=== PATIENT | female | born 1995 | race Two or more races ===

== ENCOUNTER 2020-12-07 22:01 | Observation (INO) | payer SELFPAY ==
[~2020-12-07] VITALS: Ht 154.9 cm; Wt 88.0 kg
== END 2020-12-08 00:47 | disposition home or self-care (01) ==
LOC: LDRP 22:01
PROVIDERS: ADMIT Obstetrics & Gynecology; ATTEND Obstetrics & Gynecology
DX: O42.92 Full-term premature rupture of membranes, unspecified as to length of time between rupture and onset of labor (principal); Z3A.38 38 weeks gestation of pregnancy
CPT/HCPCS: 59025; 81002; 84112; G0378; Q0114

== ENCOUNTER 2020-12-10 09:08 | Inpatient (IN) | payer BC, MEDICAID, OTHER ==
[2020-12-10] VITALS (13 sets, daily range): BP systolic 108–138; BP diastolic 64–80
[~2020-12-10] VITALS: Ht 154.9 cm; Wt 90.7 kg
[2020-12-10] MEDS ORDERED: TETRACAINE 1% INJ 2 ML VIAL IJ ONE (11:00)
[2020-12-10] MEDS ORDERED: MORPHINE SULF(PF) 0.5MG/ML 10ML VIAL ONE (11:01)
[2020-12-10] MEDS ORDERED: EPINEPHrine HCL 1 MG/1 ML AMP ONE (11:01)
[2020-12-10] MEDS ORDERED: ONDANSETRON HCL 4 MG/2 ML VIAL ONE (11:01)
[2020-12-10] MEDS ORDERED: MIDAZOLAM HCL 1MG/1ML-2 ML VIAL ONE (11:01)
[2020-12-10] MEDS ORDERED: oxyTOCIN 10 UNIT/ML 10ML VIAL ONE (11:01)
[2020-12-10] MEDS ORDERED: fentaNYL CITRATE 100 MCG/2 ML VL ONE (11:01)
[2020-12-10] MEDS ORDERED: SODIUM CHLORIDE LOCK 10 ML ONE (11:01)
[2020-12-10] MEDS ORDERED: BUPIVACAINE/DEXTROSE MPF 0.75% 2 ML AMP IT ONE (11:01)
[2020-12-10 11:36] LABS: Basophils # (auto) 0.1 10 ^3/uL (0-0.2); Eosinophils # (auto) 0 10 ^3/uL (0-0.8); Eosinophils % (auto) 0.2 % (0.0-7.0); Lymphocytes % (auto) 18.6 % (10.0-50.0); Mean Corpuscular Hemoglobin 29.4 pg (28.0-32.0); Mean Corpuscular Hgb Conc. 33.4 g/dL (32.0-36.0); Mean Corpuscular Volume 88.2 fL (80.0-100.0); Monocytes # (auto) 0.6 10 ^3/uL (0-1.3); Monocytes % (auto) 5.3 % (0.0-12.0); Neutrophils # (auto) 8.1 10 ^3/uL (1.6-8.6); Neutrophils % (auto) 74.9 % (37.0-80.0); Nucleated Red Blood Cells % 0.2 %; Platelet Count (auto) 272 10^3/uL (140-450); Red Blood Cells 4.08 10^6/uL (4.0-5.20); White Blood Cell 10.8 10^3/uL (4.4-10.8)
[2020-12-10] MEDS ORDERED: ceFAZolin 1GM/50ML 50 ML IV ONE ×2 (11:36→11:45)
[2020-12-10 11:40] LABS: Urine Bacteria NONE SEEN /hpf (None Seen); Urine Blood Negative /uL (Negative); Urine Specific Gravity 1.004 (1.001-1.035); Urine WBC <1 /hpf (0 - 5)
[2020-12-10 11:49] LABS: INR 0.98 (0.9-1.15); Partial Thromboplastin Time 26.9 sec (23.0-31.2)
[2020-12-10 12:03] LABS: Albumin 3.3 g/dL (3.4-5.0); Calcium 9.6 mg/dL (8.5-10.1); Potassium 3.7 mmol/L (3.5-5.1)
[2020-12-10 12:06] LABS: BUN/Creatinine Ratio 9.8; Bilirubin, Total 0.2 mg/dL (0.2-1.0); Total Protein 7.4 g/dL (6.4-8.2)
[2020-12-10 12:08] LABS: Alcohol, Urine < 3.0 mg/dL (0-10); Amphetamine Screen, Urine NEGATIVE (NEGATIVE); Barbiturate Scree,Urine NEGATIVE (NEGATIVE); Benzodiazephine Screen, Urine NEGATIVE (NEGATIVE); Cannabinoid Screen, Urine NEGATIVE (NEGATIVE); Cocaine Screen, Urine NEGATIVE (NEGATIVE); Opiate Scree,Urine NEGATIVE (NEGATIVE); Phencyclidine Screen, Urine NEGATIVE (NEGATIVE)
[2020-12-10] MEDS ORDERED: NEOSTIGMINE 1 MG/ML INJ (10mg/10ML VIAL) ONE (12:11)
[2020-12-10] MEDS ORDERED: GLYCOPYRROLATE 0.2 MG/ML 1ML VIAL ONE (12:11)
[2020-12-10] MEDS ORDERED: LACT. RINGERS/OXYTOCIN 20UNITS 1,000 ML IV ONE (12:15)
[2020-12-10] MEDS ORDERED: ONDANSETRON HCL 4 MG/2 ML VIAL IV PRN (12:15)
[2020-12-10] MEDS ORDERED: MEPERIDINE HCL (25 MG/ML) 1ML VIAL ONE (12:24)
[2020-12-10] MEDS ORDERED: HYDROmorphone HCL 2 MG/ML VL ONE (12:35)
[2020-12-10] MEDS ORDERED: ACETAMINOPHEN IV 100 ML IV ONE (12:35)
[2020-12-10] MEDS: HYDROmorphone HCL 2 MG/ML VL IV PRN ×2 (12:38→13:05)
[2020-12-10] MEDS ORDERED: MORPHINE SULFATE 4 MG/ML SYR/VIAL IV PRN (12:45)
[2020-12-10] MEDS ORDERED: METOCLOPRAMIDE HCL 5MG/ml INJ 2ml VIAL IV PRN (12:45)
[2020-12-10] MEDS ORDERED: KETOROLAC TROMETH 30 MG/ML 1ML VIAL IV ONE (12:45)
[2020-12-10] MEDS ORDERED: HYDROmorphone HCL 2 MG/ML VL IV PRN (12:45)
[2020-12-10] MEDS ORDERED: fentaNYL CITRATE 100 MCG/2 ML VL IV PRN (12:45)
[2020-12-10] MEDS: ceFAZolin 1GM/50ML 50 ML IV SCH ×2 (13:40→21:32)
[2020-12-10] MEDS: MORPHINE SULFATE 4 MG/ML SYR/VIAL IV PRN ×3 (14:22→21:32)
[2020-12-10] MEDS ORDERED: LACTATED RINGER'S 1,000 ML IV ONE (16:00)
[2020-12-10 21:19] LABS: Basophils # (auto) 0 10 ^3/uL (0-0.2); Basophils % (auto) 0.1 % (0.0-2.0); Eosinophils # (auto) 0 10 ^3/uL (0-0.8); Hematocrit 34.9 % (36.0-46.0); Hemoglobin 11.4 g/dL (12.2-16.2); Lymphocytes # (auto) 1.2 10 ^3/uL (0.4-5.4); Lymphocytes % (auto) 7.1 % (10.0-50.0); Mean Corpuscular Hemoglobin 28.9 pg (28.0-32.0); Mean Corpuscular Hgb Conc. 32.7 g/dL (32.0-36.0); Mean Corpuscular Volume 88.3 fL (80.0-100.0); Monocytes # (auto) 0.8 10 ^3/uL (0-1.3); Monocytes % (auto) 4.6 % (0.0-12.0); Neutrophils # (auto) 14.5 10 ^3/uL (1.6-8.6); Neutrophils % (auto) 88.2 % (37.0-80.0); Platelet Count (auto) 283 10^3/uL (140-450); Red Blood Cells 3.95 10^6/uL (4.0-5.20); Red Cell Distribution Width 14.9 % (11.8-14.3); White Blood Cell 16.5 10^3/uL (4.4-10.8)
[2020-12-11] MEDS: MORPHINE SULFATE 4 MG/ML SYR/VIAL IV PRN ×2 (01:33→05:18)
[2020-12-11 03:00] VITALS: BP 127/67
[2020-12-11] MEDS: ceFAZolin 1GM/50ML 50 ML IV SCH (05:18)
[2020-12-11 07:00] VITALS: BP 132/79
[2020-12-11 07:01] LABS: Basophils # (auto) 0 10 ^3/uL (0-0.2); Basophils % (auto) 0.1 % (0.0-2.0); Eosinophils # (auto) 0 10 ^3/uL (0-0.8); Eosinophils % (auto) 0.1 % (0.0-7.0); Hematocrit 30.9 % (36.0-46.0); Hemoglobin 10.4 g/dL (12.2-16.2); Lymphocytes # (auto) 2.5 10 ^3/uL (0.4-5.4); Lymphocytes % (auto) 17.2 % (10.0-50.0); Mean Corpuscular Hgb Conc. 33.6 g/dL (32.0-36.0); Mean Corpuscular Volume 89.2 fL (80.0-100.0); Monocytes # (auto) 0.9 10 ^3/uL (0-1.3); Monocytes % (auto) 6.5 % (0.0-12.0); Neutrophils # (auto) 10.9 10 ^3/uL (1.6-8.6); Neutrophils % (auto) 76.1 % (37.0-80.0); Nucleated Red Blood Cells % 0.1 %; Platelet Count (auto) 231 10^3/uL (140-450); Red Blood Cells 3.46 10^6/uL (4.0-5.20); Red Cell Distribution Width 15.1 % (11.8-14.3); White Blood Cell 14.3 10^3/uL (4.4-10.8)
[2020-12-11] MEDS ORDERED: HYDROmorphone HCL 2 MG/ML VL IV ONE (07:15)
[2020-12-11] MEDS ORDERED: BISACODYL 10 MG RECT SUPP PR PRN (07:15)
[2020-12-11] MEDS ORDERED: LACTATED RINGER'S 1,000 ML IV SCH (07:15)
[2020-12-11] MEDS ORDERED: HYDROcodone-ACET 5/325MG TAB PO PRN (07:15)
[2020-12-11] MEDS: IBUPROFEN 800 MG TAB PO PRN ×2 (07:30→15:46)
[2020-12-11 08:06] LABS: RPR Non Reactive (Non Reactive)
[2020-12-11] MEDS: DOCUSATE SOD 100 MG CAP PO SCH ×2 (09:04→21:30)
[2020-12-11] MEDS: DOCUSATE CALCIUM 240 MG CAP PO SCH (09:04)
[2020-12-11] MEDS: SIMETHICONE 80 MG CHEWABLE TABLET PO SCH ×3 (09:04→21:30)
[2020-12-11] MEDS: HYDROcodone-ACET 5/325MG TAB PO PRN ×4 (09:04→21:30)
[2020-12-11 11:01] VITALS: BP 121/72
[2020-12-11] MEDS ORDERED: HYDR-4902 PO (14:47)
[2020-12-11] MEDS ORDERED: PREN-96 PO (14:47)
[2020-12-11] MEDS ORDERED: DOCU100T15 PO (14:48)
[2020-12-11] MEDS ORDERED: IBUP600T27 PO (14:48)
[2020-12-11 15:00] VITALS: BP 119/69
[2020-12-11 19:00] VITALS: BP 121/72
[2020-12-11 23:00] VITALS: BP 109/62
[2020-12-12] VITALS (7 sets, daily range): BP systolic 110–128; BP diastolic 51–71
[2020-12-12] MEDS: HYDROcodone-ACET 5/325MG TAB PO PRN ×3 (02:43→17:10)
[2020-12-12] MEDS: SIMETHICONE 80 MG CHEWABLE TABLET PO SCH ×4 (05:42→21:55)
[2020-12-12] MEDS: IBUPROFEN 800 MG TAB PO PRN ×2 (07:54→15:34)
[2020-12-12] MEDS: DOCUSATE CALCIUM 240 MG CAP PO SCH (10:42)
[2020-12-12] MEDS: DOCUSATE SOD 100 MG CAP PO SCH ×2 (10:42→21:55)
[2020-12-13 03:15] VITALS: BP 126/71
[2020-12-13] MEDS: IBUPROFEN 800 MG TAB PO PRN (03:18)
[2020-12-13] MEDS: SIMETHICONE 80 MG CHEWABLE TABLET PO SCH (05:46)
[2020-12-13 07:00] VITALS: BP 115/69
[2020-12-13 11:00] VITALS: BP 119/68
== END 2020-12-13 11:55 | disposition home or self-care (01) | DRG 787 ==
LOC: LDRP 09:08 → OBSVTOIN 10:51 → LDRP 11:39
PROVIDERS: ADMIT Obstetrics & Gynecology; ATTEND Obstetrics & Gynecology
PROC: 10D00Z1 Extraction of Products of Conception, Low, Open Approach (ICD-10-PCS; principal; 2020-12-10 11:34)
DX: O76 Abnormality in fetal heart rate and rhythm complicating labor and delivery (principal); R71.0 Precipitous drop in hematocrit; Z37.0 Single live birth; Z3A.38 38 weeks gestation of pregnancy; O99.02 Anemia complicating childbirth; Z20.822 Contact with and (suspected) exposure to COVID-19
CPT/HCPCS: 36415; 59025; 76818; 80053; 80307; 81001; 81002; 85025; 85610; 85730; 86592; 86850; 86900; 86901; 87426; 94760; 96360; 96361; 96365; 96366; 96374; 96375; G0378; J0131; J0171; J0690; J2250; J2405; J2590

== ENCOUNTER 2023-02-19 15:50 | Emergency (ER) | payer MEDICAID ==
[~2023-02-19] VITALS: Ht 152.4 cm; Wt 83.3 kg
[~2023-02-19 15:50] MED LIST: DOCU100T15 PO; HYDR-4902 PO; IBUP-1454 PO; PREN-96 PO
[2023-02-19] MEDS ORDERED: cefTRIAXone SOD 1,000 MG VL IM ONE (16:45)
[2023-02-19] MEDS ORDERED: DexAMETHasone SOD PHOS 10MG/1ML VIAL INJ IM ONE (16:45)
[2023-02-19] MEDS ORDERED: LIDO2SOL18 MT (16:48)
[2023-02-19] MEDS ORDERED: PRED20TA2 PO (16:48)
[2023-02-19] MEDS ORDERED: CLIN300C70 PO (16:48)
[2023-02-19 18:15] VITALS: BP 123/82
== END 2023-02-19 18:26 | disposition home or self-care (01) ==
LOC: ER 15:50
DX: J03.90 Acute tonsillitis, unspecified (principal); Z79.1 Long term (current) use of non-steroidal anti-inflammatories (NSAID); Z79.899 Other long term (current) drug therapy
CPT/HCPCS: 96372; 99284; J0696; J1100